=== PATIENT | male | born 1975 ===

== ENCOUNTER 2017-03-04 19:32 | Emergency (ER) | payer MEDICAID, OTHER ==
[2017-03-04 19:32] VITALS: BMI 26.6
[2017-03-04 19:52] VITALS: BP 132/88; PULSE 109; RESP 22; TEMP 97.8; O2SAT 96
--- NOTE | 2017-03-04 20:03 | C.PDOC ---
History Of Present Illness 41 yo male w/PMhx of bipolar, anxiety, come request referral to psychiatrist. Patient admits, was seen [facility] few weeks ago where received month supply of his medication " but still dont have psychiatrist I can follow up with". Otherwise, pt denies any other active complaints, denies suicidal or homocidal ideation or attempts. Denies any active physical complaints. Ambulate to ED for evaluation, not in any apparent distress. Time Seen by Provider: 03/04/17 19:51 Chief Complaint (Nursing): Anxiety History Per: Patient Past Medical History Reviewed: Historical Data, Nursing Documentation, Vital Signs Vital Signs: Last Vital Signs Temp 97.8 F 03/04/17 19:47 Pulse 109 H 03/04/17 19:47 Resp 22 03/04/17 19:47 BP 132/88 03/04/17 19:47 Pulse Ox 96 03/04/17 20:43 - Medical History PMH: Anxiety, Asthma, Depression, Schizophrenia Denies: Diabetes, Hepatitis, HIV, HTN, Chronic Kidney Disease, Seizures, Sexually Transmitted Disease - [facility] Procedures TETANUS TOXOID ADMINIST (01/27/15) Family History: States: Unknown Family Hx - Social History Hx Tobacco Use: No Hx Alcohol Use: No Hx Substance Use: No - Immunization History Hx Tetanus Toxoid Vaccination: No Hx Influenza Vaccination: No Hx Pneumococcal Vaccination: No Review Of Systems Except As Marked, All Systems Reviewed And Found Negative. Constitutional: Negative for: Fever, Chills Eyes: Negative for: Vision Change ENT: Negative for: Throat Pain Cardiovascular: Negative for: Chest Pain, Palpitations, Edema, Light Headedness Respiratory: Negative for: Cough, Shortness of Breath, Wheezing Gastrointestinal: Negative for: Nausea, Vomiting, Abdominal Pain, Diarrhea Genitourinary: Negative for: Dysuria, Frequency, Incontinence Musculoskeletal: Negative for: Neck Pain, Back Pain Skin: Negative for: Rash Neurological: Negative for: Weakness, Numbness, Altered Mental Status, Headache , Dizziness Physical Exam - Physical Exam Appears: Well, Non-toxic, No Acute Distress Skin: Normal Color, Warm, Dry, No Rash Eye(s): bilateral: PERRL Nose: No Discharge Oral Mucosa: Moist Throat: Normal Neck: No Midline Cervical Tenderness, No Paracervical Tenderness, No Step Off Deformity, Supple Cardiovascular: Rhythm Regular Respiratory: Normal Breath Sounds, No Stridor, No Wheezing Gastrointestinal/Abdominal: Soft, No Tenderness Back: Normal Inspection Extremity: No Pedal Edema, No Deformity Neurological/Psych: Oriented x3, Normal Speech ED Course And Treatment O2 Sat by Pulse Oximetry: 96 Pulse Ox Interpretation: Normal Progress Note: On re-evaluation, pt is afebrile, hemodynamicaly stable. Non- toxic. Asymptomatic.Denies suicidal or homocidal ideation or attempts. Pt was seen by [facility] and information with multiple psych resources for further psych F/U given. Pt also was recommend to F/u with PMD " possible can renew medication as well". Pt understand and agrees with discharges, stable for discharge now. Disposition Counseled Patient/Family Regarding: Diagnosis, Need For Followup - Disposition Referrals: [facility] [Outside] Disposition: HOME/ ROUTINE Disposition Time: 20:33 Condition: STABLE Additional Instructions: Follow up as per [facility] consult for further evaluation and treatment. Return if any new changes. Instructions: Anxiety (ED) Print Language: IVORIAN - Clinical Impression Clinical Impression: Anxiety
== END 2017-03-04 20:46 | disposition home or self-care (01) ==
LOC: C.ER 19:32
DX: F41.9 Anxiety disorder, unspecified (principal)

== ENCOUNTER 2017-07-12 04:55 | Emergency (ER) | payer MEDICAID, OTHER ==
[2017-07-12 04:56] VITALS: BMI 26.6
--- NOTE | 2017-07-12 05:11 | C.PDOC ---
Chief Complaint (Nursing): Psychiatric Evaluation Past Medical History - Medical History PMH: Anxiety, Asthma, Depression, Schizophrenia Denies: Diabetes, Hepatitis, HIV, HTN, Chronic Kidney Disease, Seizures, Sexually Transmitted Disease - [facility] Procedures TETANUS TOXOID ADMINIST (01/27/15) Family History: States: Unknown Family Hx - Social History Hx Tobacco Use: No Hx Alcohol Use: No Hx Substance Use: No - Immunization History Hx Tetanus Toxoid Vaccination: No Hx Influenza Vaccination: No Hx Pneumococcal Vaccination: No Disposition Counseled Patient/Family Regarding: Studies Performed, Diagnosis - Disposition Disposition Time: 05:11
--- NOTE | 2017-07-12 05:22 | C.PDOC ---
History Of Present Illness 41 year old male presents to the ED for psychiatric evaluation following alleged suicidal attempt. Patient states he was drinking today, became emotional , and attempted to hang himself using jumper cables. Patient denies any other drug use or homicidal ideation at this time. Chief Complaint (Nursing): Psychiatric Evaluation History Per: Patient History/Exam Limitations: intoxication Onset/Duration Of Symptoms: Hrs Current Symptoms Are (Timing): Still Present Suicide/Self Injury Attempted (Context): Other (attempted to hang himself using jumper cables) Modifying Factor(s): Alcohol Associated Symptoms: Suicidal Thoughts, Suicidal Plan Involuntary Hold By: None Recent travel outside of the [place]: No Additional History Per: Patient Past Medical History Reviewed: Historical Data, Nursing Documentation, Vital Signs Vital Signs: Last Vital Signs Temp 98 F 07/12/17 05:10 Pulse 91 H 07/12/17 05:10 Resp 20 07/12/17 05:10 BP 114/75 07/12/17 05:10 Pulse Ox 98 07/12/17 05:38 - Medical History PMH: Anxiety, Asthma, Depression, Schizophrenia Surgical History: No Surg Hx - [facility] Procedures TETANUS TOXOID ADMINIST (01/27/15) Family History: States: Unknown Family Hx - Social History Hx Tobacco Use: No Hx Alcohol Use: Yes Hx Substance Use: Yes - Immunization History Hx Tetanus Toxoid Vaccination: No Hx Influenza Vaccination: No Hx Pneumococcal Vaccination: No Review Of Systems Psych: Positive for: Suicidal ideation (with attempted plan ), Other (EtOH intoxication ) Physical Exam - Physical Exam Appears: Non-toxic, No Acute Distress Skin: Normal Color, Warm, Dry, No Other (visible cable peter on neck ) Head: Atraumatic, Normacephalic Eye(s): bilateral: Normal Inspection Oral Mucosa: Moist Neck: Normal ROM, Supple Chest: Symmetrical, No Deformity Cardiovascular: Rhythm Regular Respiratory: Normal Breath Sounds Extremity: Normal ROM, Capillary Refill (less than 2 seconds ) Neurological/Psych: Oriented x3, Normal Speech, Normal Cognition Gait: Steady ED Course And Treatment - Laboratory Results Result Diagrams: 07/12/17 05:45 07/12/17 05:45 O2 Sat by Pulse Oximetry: 98 (on RA) Pulse Ox Interpretation: Normal Progress Note: Labs ordered and reviewed. Patient placed on 1:1 observation. Patient is medically cleared for psychiatric evaluation. Disposition - Disposition Disposition: HOSPITALIZED Disposition Time: 06:51 Condition: STABLE Forms: [facility] (Lithuanian) - Clinical Impression Clinical Impression: Alcohol abuse, Suicide attempt - PA / MARINE OPERATIONS COORDINATOR / Resident Statement MD/DO has reviewed & agrees with the documentation as recorded. - Scribe Statement The provider has reviewed the documentation as recorded by the Scribe (Mali Robles) All medical record entries made by the Scribe were at my direction and personally dictated by me. I have reviewed the chart and agree that the record accurately reflects my personal performance of the history, physical exam, medical decision making, and the department course for this patient. I have also personally directed, reviewed, and agree with the discharge instructions and disposition. Physician Patient Turnover Patient Signed Over To: Beryl Anderson Handoff Comments: Psych evaluation is pending
[2017-07-12 05:49] LABS: BASO # 0.1 K/uL (0.0-0.2); BASO % 0.7 % (0.0-2.0); EOS # 0.1 K/uL (0.0-0.7); EOS % 1.6 % (0.0-4.0); HEMATOCRIT 44.1 % (35.0-51.0); LYMPH # 3.2 K/uL (1.0-4.3); LYMPH % 36.4 % (20.0-40.0); MEAN CELL VOLUME 82.8 fL (80.0-94.0); MEAN CORPUSCULAR HEMOGLOBIN 27.3 pg (27.0-31.0); MEAN PLATELET VOLUME 7.1 fL (7.2-11.7); MONO # 0.5 K/uL (0.0-0.8); MONO % 6.1 % (0.0-10.0); RED CELL DISTRIBUTION WIDTH 13.7 % (11.5-14.5); WHITE BLOOD COUNT 8.8 K/uL (4.8-10.8)
[2017-07-12 05:50] LABS: RBC URINE < 1 /hpf (0-3); URINE BILIRUBIN NEGATIVE (NEGATIVE); URINE BLOOD 1+ (NEGATIVE); URINE COLOR Straw (YELLOW); URINE GLUCOSE (UA) NORMAL (Normal); URINE KETONE NEGATIVE (NEGATIVE); URINE LEUKOCYTE ESTERASE NEG Leu/uL (Negative); URINE PROTEIN NEGATIVE (NEGATIVE); URINE UROBILINOGEN NORMAL mg/dL (0.2-1.0); WBC URINE < 1 /hpf (0-5)
[2017-07-12 06:09] LABS: CHLORIDE 106 mmol/L (98-107); POTASSIUM 4.1 mmol/L (3.6-5.2); SODIUM 146 mmol/L (132-148)
[2017-07-12 06:11] LABS: BILIRUBIN,TOTAL 0.2 mg/dL (0.2-1.3); CARBON DIOXIDE 21 mmol/L (22-30); GFR AFRICAN-AMERICAN > 60
[2017-07-12 06:12] LABS: ALB/GLOB RATIO 1.4 (1.0-2.1); ALKALINE PHOSPHATASE 74 U/L (38-126); ALT/SGPT 60 U/L (21-72); AST/SGOT 37 U/L (17-59); BLOOD UREA NITROGEN 15 mg/dL (9-20); CALCIUM 9.4 mg/dl (8.6-10.4); GLUCOSE,RANDOM 92 mg/dL (75-110); TOTAL PROTEIN 7.9 g/dL (6.3-8.3)
[2017-07-12 06:13] LABS: ALCOHOL SERUM 110 mg/dl (0-10)
[2017-07-12 08:12] VITALS: O2SAT 97
[2017-07-12 09:53] VITALS: BP 125/79; PULSE 80; RESP 18; TEMP 98.4
== END 2017-07-12 10:11 | disposition home or self-care (01) ==
LOC: C.ER 04:55
DX: F10.10 Alcohol abuse, uncomplicated (principal); T14.91 Suicide attempt

== ENCOUNTER 2018-01-11 16:40 | Emergency (ER) | payer MEDICAID, OTHER ==
[2018-01-11 16:40] VITALS: BMI 26.6
[2018-01-11 16:52] VITALS: BP 129/87; TEMP 98.5
[2018-01-11 17:06] VITALS: PULSE 77; RESP 18; O2SAT 98
--- NOTE | 2018-01-11 17:25 | C.PDOC ---
History Of Present Illness 42 y/o male with hx of asthma, has not had any medications for months. c/o sob, dry cough x 2-3 days, with no fever or chills and left upper back pain. no sick contacts. cough with white sputum. Time Seen by Provider: 01/11/18 16:58 Chief Complaint (Nursing): Shortness Of Breath History Per: Patient History/Exam Limitations: no limitations Onset/Duration Of Symptoms: Days (3) Current Symptoms Are (Timing): Still Present Initiating Event: Upper Respiratory Illness Exacerbating Factor(s): Coughing Current Respiratory Medications: None Severity: Mild Associated Symptoms: Productive Cough. denies: Fever, Chills, Chest Pain, Leg/ Calf Pain Past Medical History Reviewed: Historical Data, Nursing Documentation, Vital Signs Vital Signs: Last Vital Signs Temp 98.5 F 01/11/18 16:49 Pulse 77 01/11/18 17:06 Resp 18 01/11/18 17:06 BP 129/87 01/11/18 16:49 Pulse Ox 98 01/11/18 17:39 - Medical History PMH: Anxiety, Asthma, Depression, Schizophrenia Denies: Diabetes, Hepatitis, HIV, HTN, Chronic Kidney Disease, Seizures, Sexually Transmitted Disease - [facility] Procedures TETANUS TOXOID ADMINIST (01/27/15) Family History: States: Unknown Family Hx - Social History Hx Tobacco Use: No Hx Alcohol Use: No Hx Substance Use: No - Immunization History Hx Tetanus Toxoid Vaccination: No Hx Influenza Vaccination: No Hx Pneumococcal Vaccination: No Review Of Systems Constitutional: Negative for: Fever, Chills Cardiovascular: Negative for: Chest Pain, Palpitations Respiratory: Positive for: Cough, Shortness of Breath. Negative for: Wheezing Gastrointestinal: Negative for: Abdominal Pain Musculoskeletal: Positive for: Back Pain (left upper) Neurological: Negative for: Weakness, Numbness Physical Exam - Physical Exam Appears: Non-toxic, Toxic Skin: Warm, Dry Head: Atraumatic, Normacephalic Ear(s): Bilateral: Normal Nose: No Discharge Oral Mucosa: Moist Throat: No Erythema, No Exudate Neck: Supple Cardiovascular: Rhythm Regular, No Murmur Respiratory: No Decreased Breath Sounds, No Accessory Muscle Use, No Rales, No Rhonchi, No Wheezing Gastrointestinal/Abdominal: Soft, No Tenderness Neurological/Psych: Oriented x3, Normal Speech, Normal Cognition, Normal Motor, Normal Sensation ED Course And Treatment O2 Sat by Pulse Oximetry: 98 Medical Decision Making Medical Decision Making: cxr neg for infiltrate, lungs cta, will d/c pt with albuterol mdi and med clinic f/u Disposition Counseled Patient/Family Regarding: Studies Performed, Diagnosis, Need For Followup, Rx Given - Disposition Referrals: [facility] [Outside] Disposition: HOME/ ROUTINE Disposition Time: 17:55 Condition: GOOD Additional Instructions: Please use inhaler 2 puffs by mouth every 6 hours if needed. Follow up in medical clinic in a few days. Return to ER for any worse symptoms. Prescriptions: Albuterol HFA [Ventolin HFA 90 mcg/actuation (8 g)] 2 puff IH Q6 #1 inhaler Instructions: Acute Bronchitis, Adult (DC) Forms: [facility] (Sinhala), General Discharge Instructions - Clinical Impression Clinical Impression: Bronchitis
--- NOTE | 2018-01-11 17:50 | RAD ---
HISTORY: cough asthma COMPARISON: No prior. TECHNIQUE: Chest PA and lateral FINDINGS: LUNGS: No active pulmonary disease. PLEURA: No significant pleural effusion identified. No pneumothorax apparent. CARDIOVASCULAR: Normal. OSSEOUS STRUCTURES: No significant abnormalities. VISUALIZED UPPER ABDOMEN: Normal. OTHER FINDINGS: None. IMPRESSION: No active disease.
== END 2018-01-11 18:21 | disposition home or self-care (01) ==
LOC: C.ER 16:40
DX: J40 Bronchitis, not specified as acute or chronic (principal)

== ENCOUNTER 2019-01-28 11:12 | Emergency (ER) | payer MEDICAID, OTHER ==
[2019-01-28 11:23] VITALS: BMI 31.6
[2019-01-28 11:32] VITALS: O2SAT 99
[2019-01-28] MEDS ORDERED: Sodium Chloride 0.9% 1,000 ML IV ONE (12:27)
--- NOTE | 2019-01-28 12:55 | RAD ---
Date of service: 01/28/2019 PROCEDURE: Radiographs of the chest and abdomen (obstructive series) HISTORY: abd pain COMPARISON: No prior. TECHNIQUE: AP radiograph of the chest, with upright and supine radiographs of the abdomen. 3 views obtained. FINDINGS: CHEST: Lungs: The lungs are well inflated and clear. Cardiovascular: Normal size heart. No pulmonary vascular congestion. No aortic atherosclerotic calcification present Pleura: No pleural fluid. No pneumothorax. Other findings: None. ABDOMEN AND PELVIS: Bowel: There is large amount of stool in the colon. No evidence of mechanical obstruction. Free air: None. Bones: Unremarkable. Other findings: None. IMPRESSION: Constipation. No evidence for bowel obstruction. Clear lungs.
[2019-01-28] MEDS ORDERED: Sodium Chloride 0.9% 1,000 ML ONE (12:56)
[2019-01-28 13:04] LABS: BASO # 0.1 K/uL (0.0-0.2); BASO % 0.8 % (0.0-2.0); EOS # 0.1 K/uL (0.0-0.7); EOS % 1.6 % (0.0-4.0); HEMOGLOBIN 13.5 g/dL (12.0-18.0); LYMPH # 3.1 K/uL (1.0-4.3); LYMPH % 42.7 % (20.0-40.0); MEAN CELL VOLUME 85.3 fL (80.0-94.0); MEAN CORPUSCULAR HEMOGLOBIN 28.9 pg (27.0-31.0); MEAN CORPUSCULAR HGB CONC 33.9 g/dL (33.0-37.0); MEAN PLATELET VOLUME 7.3 fL (7.2-11.7); MONO # 0.4 K/uL (0.0-0.8); MONO % 5.9 % (0.0-10.0); NEUT # 3.5 K/uL (1.8-7.0); RBC 4.69 Mil/uL (4.40-5.90); RED CELL DISTRIBUTION WIDTH 14.2 % (11.5-14.5); WHITE BLOOD COUNT 7.2 K/uL (4.8-10.8)
[2019-01-28 13:06] LABS: SQUAMOUS EPITHIAL < 1 /hpf (0-5); URINE BILIRUBIN NEGATIVE (NEGATIVE); URINE BLOOD NEGATIVE (NEGATIVE); URINE CLARITY Clear (Clear); URINE COLOR Yellow (YELLOW); URINE GLUCOSE (UA) NORMAL (Normal); URINE LEUKOCYTE ESTERASE NEG Leu/uL (Negative); URINE PROTEIN NEGATIVE (NEGATIVE); URINE UROBILINOGEN NORMAL mg/dL (0.2-1.0)
--- NOTE | 2019-01-28 13:10 | C.PDOC ---
History Of Present Illness 43 y/o male pt with questionable history of fatty liver presents to the ER c/o right-sided abdominal pain. Pt is a chronic narcotics user. Pt does not use stool softener or laxatives. Pt has no other complaints or associated sx at this time. Time Seen by Provider: 01/28/19 12:19 Chief Complaint (Nursing): Abdominal Pain History Per: Patient History/Exam Limitations: no limitations Onset/Duration Of Symptoms: Days Current Symptoms Are (Timing): Still Present Past Medical History Reviewed: Historical Data, Nursing Documentation, Vital Signs Vital Signs: Last Vital Signs Temp 98.2 F 01/28/19 11:23 Pulse 97 H 01/28/19 11:23 Resp 20 01/28/19 11:23 BP 125/83 01/28/19 11:23 Pulse Ox 99 01/28/19 11:23 - Medical History PMH: Anxiety, Asthma, Depression, Schizophrenia - [facility] Procedures TETANUS TOXOID ADMINIST (01/27/15) Family History: States: Unknown Family Hx - Social History Hx Tobacco Use: No Hx Alcohol Use: No (previous drinker) Hx Substance Use: No - Immunization History Hx Tetanus Toxoid Vaccination: No Hx Influenza Vaccination: No Hx Pneumococcal Vaccination: No Review Of Systems Except As Marked, All Systems Reviewed And Found Negative. Constitutional: Negative for: Fever, Chills Gastrointestinal: Positive for: Abdominal Pain (right side) Physical Exam - Physical Exam Appears: Non-toxic, No Acute Distress, Other (obese male; anxious ) Skin: Warm, Dry Head: Normacephalic Eye(s): bilateral: PERRL, EOMI Oral Mucosa: Moist Throat: Normal, No Erythema, No Exudate Neck: Normal ROM, Supple Chest: Symmetrical Cardiovascular: Rhythm Regular Respiratory: Normal Breath Sounds Gastrointestinal/Abdominal: Soft, No Tenderness, No Guarding, No Rebound, Other (obese; dull percussions on left side and tympanic on epi. ) Extremity: Normal ROM (x4) Neurological/Psych: Oriented x3, Normal Speech, Normal Cognition ED Course And Treatment - Laboratory Results Result Diagrams: 01/28/19 12:58 01/28/19 12:58 Lab Interpretation: Normal (ua neg.etoh neg) O2 Sat by Pulse Oximetry: 99 (RA) Pulse Ox Interpretation: Normal - Radiology CXR: Interpreted by Me CXR Interpretation: Yes: No Acute Disease - Other Rad Abdomen obstructive series X-Ray: Read By Radiologist Interpretation: IMPRESSION:+FOS Reevaluation Time: 13:25 Reassessment Condition: Improved Medical Decision Making Medical Decision Making: plans: -- chem labs -- blood work -- obstructive series XR -- IV fluids -- toradol chronic abd colic prob related to chronic opioid use and no laxative tx ? fatty liver underlying (mild elev LFT's) of little concern today, considering obesity, may be followed no inpt studies for liver, but opt US showed "fatty liver" diet, exercise, laxatives educated Disposition Doctor Will See Patient In The: Office Counseled Patient/Family Regarding: Studies Performed, Diagnosis - Disposition Disposition: HOME/ ROUTINE Disposition Time: 13:26 Condition: GOOD Forms: [facility] (Guatemalan) - Clinical Impression Clinical Impression: Abdominal colic - Scribe Statement The provider has reviewed the documentation as recorded by the Ronnieibnate Doyle Do Provider Attestation: All medical record entries made by the Scribe were at my direction and personally dictated by me. I have reviewed the chart and agree that the record accurately reflects my personal performance of the history, physical exam, medical decision making, and the department course for this patient. I have also personally directed, reviewed, and agree with the discharge instructions and disposition.
[2019-01-28 13:19] LABS: ALB/GLOB RATIO 1.4 (1.0-2.1); ALBUMIN 4.2 g/dL (3.5-5.0); ALT/SGPT 205 U/L (21-72); AST/SGOT 109 U/L (17-59); BLOOD UREA NITROGEN 15 mg/dL (9-20); GFR NON-AFRICAN AMERICAN > 60; LIPASE 129 U/L (23-300)
[2019-01-28 13:31] LABS: BARBITURATES, UR NEGATIVE (NEGATIVE); BENZODIAZEPINES, UR NEGATIVE (NEGATIVE); PHENCYCLIDINE, UR NEGATIVE (NEGATIVE)
[2019-01-28] MEDS ORDERED: Magnesium Citrate Oral SOL (300 ml) PO ONE (13:32)
[2019-01-28 13:44] VITALS: BP 127/78; PULSE 88; RESP 18; TEMP 98.5
[2019-01-28 13:47] LABS: OPIATES, UR NEGATIVE (NEGATIVE)
[2019-01-28] MEDS ORDERED: Magnesium Citrate Oral SOL (300 ml) ONE (13:47)
== END 2019-01-28 13:59 | disposition home or self-care (01) ==
LOC: C.ER 11:12
DX: R10.84 Generalized abdominal pain (principal)
CPT/HCPCS: 74022; 80053; 80320; 80324; 80345; 80346; 80349; 80353; 80358; 80361; 81001; 83690; 83992; 85025; 96361; 96374; 99284; J1885; J7030